=== PATIENT | male | born 1985 | race Caucasian/White ===

== ENCOUNTER 2017-08-20 16:37 | Emergency (ER) | payer SELFPAY ==
[2017-08-20 16:38] VITALS: BP 117/91; PULSE 103; RESP 18; TEMP 36.8; O2SAT 97; BMI 27.6
[2017-08-20] MEDS: 0.9% Normal Saline 1,000 ML 1000 ML IV (16:58)
[2017-08-20] MEDS: Dicyclomine 10 MG Capsule 20 MG PO (17:02)
[2017-08-20] MEDS: Loperamide 2 MG Capsule 4 MG PO (17:02)
--- NOTE | 2017-08-20 17:10 | ED.VISSUMM ---
- ER Visit Summary Date of Service: 08/20/17 Chief Complaint: Diffuse crampy abdominal pain with diarrhea for 3-4 days History of Present Illness: The patient is a 31 M who has a history of depression presents with 6 loose stools a day for the last 3-4 days. He reports abdominal discomfort that is diffuse and crampy and made worse when he has diarrhea. He has not noted any blood or mucus in the diarrhea. He has had no ill contacts. He has not been on antibiotics in last month. He denies cough, shortness of breath or difficulty breathing. He denies any chest pain. He denies dysuria, frequency, urgency hematuria. He does complain of dry mouth and thirst. He also complains of intermittent orthostatic symptoms. He states he feels weak. He did have a documented temperature 101.0?F last evening and a temperature of 102.0?F this morning. He denies nausea or vomiting. He denies any URI type symptoms. He denies headache, photophobia sips of his neck. He denies rash. He has not consumed on cooked or undercooked meat or fish. Physical Examination: Vital signs are remarkable heart rate 103. HEENT exam is marked for dry mucosa and tongue. Heart is rapid and regular without murmur, gallop or rub. Lungs are clear to auscultation. Abdomen is tender without guarding rebound tenderness. Bowel sounds are diminished. There is no evidence of umbilical or inguinal hernia. He has no skin lesions noted lower extremities. His neuro exam is nonfocal. Test Results: No tests were obtained, nor were any indicated. Emergency Department Course and Treatment: He was established and he received 1 L of normal saline wide open and was treated with Bentyl for his cramping pain and Imodium for his diarrhea. Patient was reassessed at 1925. He states he feels better and comfortable to go home. Treatment Plan: Appropriate home-going instructions, prescription for Bentyl and Imodium Disposition: Discharged to home with mother Impression: Abdominal pain with diarrhea Mild dehydration This note was generated with [employer] dictation software. It may contain incorrect words, spelling, and punctuation that were not noted in review of the chart prior to signing ED Disposition - Plan for ED Patient: Disposition: Home or Assisted Living Chief Complaint: General Illness Instructions: ED Diarrhea Viral Prescriptions: Dicyclomine HCl [Bentyl] 20 mg PO ACHS #10 cap Referrals: NOT,DEFINED [Primary Care Provider] - Miki Mak MD [STAFF PHYSICIAN] - 3-5 Days if not improving
[2017-08-20 19:36] VITALS: BP 126/85; PULSE 97; RESP 17; O2SAT 98
--- NOTE | 2017-08-20 19:36 | ED.RN ---
IV DC'ED, CATHETER INTACT, SMALL GAUZE DRESSING PLACED. DISCHARGE INSTRUCTIONS GIVEN TO AND REVIEWED WITH PATIENT, PATIENT DENIES QUESTIONS OR CONCERNS AND VOICES UNDERSTANDING OF DISCHARGE INSTRUCTIONS. PT AMBULATES OUT OF ROOM WITHOUT DIFFICULTY.
== END 2017-08-20 19:37 | disposition home or self-care (01) ==
PROVIDERS: Emergency Provider Emergency Medicine
DX: E86.0 Dehydration (principal); R10.9 Unspecified abdominal pain; R19.7 Diarrhea, unspecified; F32.9 Major depressive disorder, single episode, unspecified; Z72.0 Tobacco use
CPT/HCPCS: 96360; 99283; J7030; A4216

== ENCOUNTER 2021-12-19 14:34 | Emergency (ER) | payer MEDICAID, SELFPAY ==
[2021-12-19 14:35] VITALS: BP 132/87; PULSE 99; RESP 18; TEMP 36.3; O2SAT 99; BMI 25.8
[2021-12-19 14:38] VITALS: BP 132/87; PULSE 99; RESP 18; TEMP 36.3; O2SAT 99
--- NOTE | 2021-12-19 16:10 | RAD_ITS ---
EXAM: XR LEFT FINGERS, 2 OR MORE VIEWS CLINICAL INDICATION: Injury/Pain TECHNIQUE: Frontal, lateral and oblique views of the fingers of the left hand. This report was created using [employer] report generation technology. COMPARISON: None. FINDINGS: BONES/JOINTS: Unremarkable. No acute fracture. No subluxation. Normal alignment. Preservation of the joint space. No sclerotic or destructive changes observed. SOFT TISSUES: Prominent soft tissue swelling noted along the lateral aspect of the second finger. No radiopaque foreign body. RAD/Finger(s) Min 2 Views IMPRESSION: Soft tissue swelling. No underlying bone or joint abnormality. Electronically Signed: Mahendra Tan MD at 16:27 EDT ,
[2021-12-19] MEDS: Cefazolin 1 GM/50 ML BAG IV (16:13)
[2021-12-19] MEDS: Diphth,Pertuss(Acell),Tet Vac 0.5 ML Vial IM (16:13)
--- NOTE | 2021-12-19 16:42 | EX.ED.UPPERE ---
HPI History of Present Illness HPI Narrative: Patient presents with swelling and drainage from his left index finger that has been getting worse over the last 5 days. Patient states the pain improved when it started to drain. Patient states it has been draining purulent drainage for the last couple days. Patient states he was doing some tree trimming and thinks he got some splinters in his finger. Patient states nothing makes his pain better nothing makes it worse. Patient denies any paresthesias or weakness. Patient is unsure of his last tetanus. Patient denies any other injuries. Chief Complaint: Wound Informant: patient Occured/Mechanism Mechanism/Context: Yes puncture wound Onset/Context/Timing Onset: Days (5) Context: Gradual Onset Timing: Continuous Current Severity: Gone Worsened by: Nothing Relieved by: Nothing Associated Symptoms Associated Symptoms: Negative for Parasthesia, Weakness or Loss of Funtion Narrative Tetanus Immunization: Unknown PFSH PFSH Medical History no medical history no medical history Home Medications cephalexin 500 mg capsule 500 mg PO Q6 #40 CAPSULES 12/19/21 [Rx Last Taken Unknown] Allergy/AdvReac Type Severity Reaction Status Date / Time No Known Allergies Allergy Verified 12/19/21 14:37 Surgical History no surgical history no surgical history Social History Smoking Status: Current every day smoker tobacco type: cigarettes ROS ROS ED Constitutional Constitutional ED: Denies chills or fever(s) Eyes Eyes: Denies blurry vision or change in vision ENT ENT ED: Denies rhinorrhea or sore throat Cardiovascular Cardiovascular: Denies chest pain or palpitations Respiratory/Chest Respiratory/Chest: Denies cough or dyspnea Gastrointestinal Gastrointestinal: Denies nausea or vomiting Genitourinary Genitourinary ED: Denies dysuria or hematuria Musculoskeletal Musculoskeletal: Denies back pain or neck pain Integumentary Denies abscess or rash Neurologic Neurologic: Denies headache(s) or weakness Allergic/Immunologic Allergic/Immunologic ED: Denies mouth swelling or urticaria EXAM Physical Exam Const Vital Signs: 12/19/21 14:35 12/19/21 14:38 Temperature 97.4 F L 97.4 F L Temperature Source Temporal Temporal Pulse Rate 99 99 Respiratory Rate 18 18 Blood Pressure 132/87 H 132/87 H Blood Pressure Mean 102 Pulse Ox 99 99 Oxygen Delivery Method Room Air Room Air Positive well nourished and well developed General Appearance ED: well developed and NAD HEENT Reports moist mucous membranes Neck full ROM Extremity Extremity Narrative: There is edema and erythema over the middle phalanx of the left index finger. There is an open wound on the radial aspect of the middle phalanx of the left index finger. There is some purulent drainage from this area. There is no tenderness along the flexor tendon. There is no pain with complete extension of the left index finger. Sensation was intact to light touch in all digits. Capillary refill is less than 2 seconds in all digits. General Extremety ED: Yes edema General Extremity: edema Neuro oriented x3, CN's II-XII intact bilaterally, moves all extremities, no focal motor deficits and no sensory deficits noted Sensorium / Orientation: alert Motor Exam: strength 5/5 throughout Psych mental status grossly normal MDM MDM MDM Narrative Medical decision making narrative: Patient was given a tetanus booster here. Patient was given a dose of Ancef here. X-rays of the left index finger were obtained. There are 3 views. On my interpretation, there is soft tissue swelling. There is no acute fracture or dislocation. There is no evidence of osteomyelitis. There are no foreign bodies noted. Radiologist also interpreted the x-rays and agrees. The wound was cleaned and dressed. Patient was given a prescription for Keflex. Patient was instructed to follow-up with his primary care physician in 5 to 7 days. Patient was instructed return if worse in any way. Patient understood and was agreeable with the plan. All questions were answered. Radiography Diagnostic Testing: Clinical Impression(s) from Imaging Studies Finger X-Ray 12/19/21 16:10 IMPRESSION: Soft tissue swelling. No underlying bone or joint abnormality. Electronically Signed: Mahendra Tan MD at 16:27 EDT , Discharge Plan Triage Chief Complaint: Wound ED Provider: Tomas Mariano Dx/Rx/DC Orders Clinical Impression: Infected puncture wound of left index finger Instructions: ED Puncture Wound (General) Prescriptions: New cephalexin [cephalexin] 500 MG capsule 500 mg PO Q6 Qty: 40 0RF Primary Care Provider: Care Physician,No Primary Referrals: Miki Vallecillo MD [STAFF PHYSICIAN] - 3-5 Days Care Physician,No Primary [Primary Care Provider] - Disposition Disposition: Home, Self Care
== END 2021-12-19 16:58 | disposition home or self-care (01) ==
PROVIDERS: Emergency Provider Emergency Medicine; Visit Provider Emergency Medicine
DX: S61.231A Puncture wound without foreign body of left index finger without damage to nail, initial encounter (principal); L08.9 Local infection of the skin and subcutaneous tissue, unspecified; W26.8XXA Contact with other sharp object(s), not elsewhere classified, initial encounter; Y93.H9 Activity, other involving exterior property and land maintenance, building and construction; Y99.8 Other external cause status; F17.210 Nicotine dependence, cigarettes, uncomplicated
CPT/HCPCS: 73140; 96365; 99283

== ENCOUNTER 2022-02-04 08:52 | Emergency (ER) | payer MEDICAID, SELFPAY ==
[2022-02-04 08:54] VITALS: BP 126/88; PULSE 113; RESP 17; TEMP 36.6; O2SAT 98; BMI 25.8
--- NOTE | 2022-02-04 09:13 | EX.ED.VIS.UR ---
HPI HPI - URI History of Present Illness Chief Complaint: Ear Problem Narrative Narrative: 36-year-old male presenting for evaluation of right ear pain and right-sided tongue pain. He states he has been sick with chills, body aches for the last 5 days. He states he tested positive for COVID-19 yesterday at home. He does not know if he had any fevers. He has not had any nausea or vomiting. He states that his ear pain has been present for a few days now. His tongue he believes he has been scraping this on a chipped tooth and now is developed an ulceration. He also reports that he thinks he has thrush because he is using his breathing treatments more often. No trouble swallowing or breathing. ROS ROS ED Constitutional Constitutional ED: Reports chills; Denies sweats Eyes Eyes: Denies diplopia ENT ENT ED: Reports ear pain right and sore throat Cardiovascular Cardiovascular: Denies chest pain or palpitations Respiratory/Chest Respiratory/Chest: Reports cough; Denies dyspnea or dyspnea on exertion Gastrointestinal Gastrointestinal: Denies abdominal pain or constipation Genitourinary Genitourinary ED: Denies dysuria or hematuria Musculoskeletal Musculoskeletal: Reports myalgias; Denies arthralgias or back pain Integumentary Reports other Details: Tongue ulceration ; Denies abscess Psychiatric Psychiatric: Denies anxiety or depression PFSH PFSH Home Medications amoxicillin 875 mg-potassium clavulanate 125 mg tablet 1 tab PO BID #20 tabs 02/04/22 [Rx Last Taken Unknown] clotrimazole 10 mg isa 10 mg mucous membrane 5X/DAY #20 tabs 02/04/22 [Rx Last Taken Unknown] Allergy/AdvReac Type Severity Reaction Status Date / Time No Known Allergies Allergy Verified 02/04/22 08:53 Social History Smoking Status: Current every day smoker tobacco type: cigarettes EXAM Physical Exam Const Vital Signs: 02/04/22 08:54 Temperature 97.8 F Temperature Source Temporal Pulse Rate 113 H Respiratory Rate 17 Blood Pressure 126/88 H Blood Pressure Mean 100 Pulse Ox 98 Oxygen Delivery Method Room Air Positive well nourished General Appearance ED: NAD; Negative for pallor HEENT Reports moist mucous membranes HEENT Narrative: 0.5 cm right sided posterior tongue ulceration. There appears to be thrush on the surface of the tongue which is predominantly right-sided. Patient has multiple dental caries. There is patent without stridor. Right TM is erythematous and bulging. normocephalic and atraumatic Throat: posterior oropharynx normal Eyes PERRL and EOMs intact bilaterally Neck no lymphadenopathy and no meningeal signs General: Negative for anterior neck swelling Resp normal respiratory effort Auscultation: Negative for rales, rhonchi or wheezes Cardio Rate: tachycardic Rhythm: regular rhythm GI non-tender Neuro oriented x3 and CN's II-XII intact bilaterally Sensorium / Orientation: alert Psych mental status grossly normal Skin General Skin Exam: Negative for jaundice or pallor MDM MDM MDM Narrative Medical decision making narrative: Patient tested positive for COVID-19 yesterday. He still has body aches and chills. He is counseled to quarantine until symptoms improve. His right ear does look infected and he will be started on Augmentin for this. I did certified personal finance counselor him for his tongue that he should stop scraping the side of the tooth is much as possible. Patient will be given clotrimazole atrocious for his thrush. He was given follow-up with ENT for both his ear and his thrush as well as a tongue ulceration. Patient to continue to alternate Tylenol and ibuprofen for pain. Return for new or worsening symptoms. Impression: 1. 0.5 cm tongue ulceration 2. Oral thrush 3. COVID-19 4. Right otitis media Lab Data Attestation: I reviewed the patient's lab results. Discharge Plan Triage Chief Complaint: Ear Problem ED Provider: Julián Landaverde Dx/Rx/DC Orders Instructions: Coronavirus Disease 2019 (COVID-19): Caring for Yourself or Others, Leeanne Infection: Thrush, ED Otitis Media Antibiotic ... Prescriptions: New amoxicillin-pot clavulanate 875-125 mg tablet 1 tab PO BID Qty: 20 0RF clotrimazole 10 mg isa 10 mg mucous membrane 5X/DAY Qty: 20 0RF Primary Care Provider: Care Physician,No Primary Referrals: Javon Vences MD [Med Staff - Active Staff] - 3-5 Days Care Physician,No Primary [Primary Care Provider] - Disposition Disposition: Home, Self Care
[2022-02-04] MEDS: Amox/Clavulanate 875 MG Tablet PO (09:18)
[2022-02-04] MEDS: Clotrimazole 10 MG Troche MUCOUS MEM (09:45)
== END 2022-02-04 09:46 | disposition home or self-care (01) ==
PROVIDERS: Emergency Provider Student in an Organized Health Care Education/Training Program; Visit Provider Student in an Organized Health Care Education/Training Program
DX: U07.1 COVID-19 (principal); K14.0 Glossitis; B37.0 Candidal stomatitis; H66.91 Otitis media, unspecified, right ear; F17.210 Nicotine dependence, cigarettes, uncomplicated
CPT/HCPCS: 99283